=== PATIENT | male | born 1960 | race Caucasian/White ===

== ENCOUNTER 2021-09-23 06:10 | Day surgery (SDC) | payer OTHER ==
[~2021-09-23] VITALS: Ht 180.3 cm; Wt 99.0 kg
[~2021-09-23 06:10] MED LIST: B-100 COMPLEX1 EACH PO; EUTHYROX125 MCG PO; FOLI1 PO; Naltrexone HCl50 MG PO
[2021-09-23] MEDS ORDERED: CLOP75 PO (10:38)
--- NOTE | 2021-09-23 12:06 | NUR ---
PURSE STRING SUTURE REMOVED FROM L POP SITE. CLOTH DOT PLACED. PT UP AND WALKING AROUND. SITE BLEEDING SOME. DR IN TO TALK WITH PT, PRESSURE DRESSING PLACED OVER L POP. SALINE LOCK REMOVED WITH CATHETER INTACT. PT GETTING DRESSED AT THIS TIME.
--- NOTE | 2021-09-23 12:36 | NUR ---
PT VERBALIZED UNDERSTANDING OF WRITTEN AND VERBAL D/C INST. PT TAKEN OUT OF THE HRT CENTER VIA W/C.
[2021-11-09] MEDS ORDERED: CLOP75 PO (22:23)
[2021-11-11] MEDS ORDERED: XARELTO20 MG PO (07:21)
[2021-11-11] MEDS ORDERED: XARELTO15 MG PO (07:44)
[2021-11-11] MEDS ORDERED: ATOR40TA PO (10:15)
== END 2021-09-23 12:30 | disposition home or self-care (01) ==
LOC: MHTC 06:10
DX: I87.1 Compression of vein (principal); I87.2 Venous insufficiency (chronic) (peripheral); L97.822 Non-pressure chronic ulcer of other part of left lower leg with fat layer exposed; E03.9 Hypothyroidism, unspecified; G47.30 Sleep apnea, unspecified; F17.290 Nicotine dependence, other tobacco product, uncomplicated; Z88.8 Allergy status to other drugs, medicaments and biological substances
CPT/HCPCS: 37238; 37252; 75820; 75825; 76937; 99152; 99153; A9270; C1725; C1753; C1769; C1876; C1887; C1894; J1644; J2250; J3010; J7030; J7040; Q9967

== ENCOUNTER 2022-02-16 05:35 | Day surgery (SDC) | payer OTHER ==
[~2022-02-16] VITALS: Ht 180.3 cm; Wt 105.0 kg
[~2022-02-16 05:35] MED LIST changes: +ATOR40TA PO; +CLOP75 PO; +CYAN500 PO; +MULVITA PO; +Pentoxifylline400 MG PO; +THERA-D2000 UNIT PO; +XARELTO15 MG PO; +XARELTO20 MG PO
[2022-02-16 07:23] LABS: BASOPHILS ABSOLUTE AUTO 0.04 K/mm3 (0.00-0.23); BASOPHILS PERCENT AUTO 1 % (0-2); EOSINOPHILS ABSOLUTE AUTO 0.21 K/mm3 (0.00-0.68); EOSINOPHILS PERCENT AUTO 3 % (0-6); Hematocrit 41.3 % (37.0-53.0); Hemoglobin 13.8 g/dL (13.5-17.5); IMMATURE GRAN ABSOLUTE AUTO 0.03 K/mm3 (0.00-0.10); IMMATURE GRAN PERCENT AUTO 0 % (0-1); LYMPHOCYTES ABSOLUTE AUTO 0.74 K/mm3 (0.84-5.20); LYMPHOCYTES PERCENT AUTO 11 % (21-46); MONOCYTES ABSOLUTE AUTO 0.95 K/mm3 (0.16-1.47); MONOCYTES PERCENT AUTO 14 % (4-13); Mean Corpuscular HGB Conc 33.4 g/dL (31.5-36.5); Mean Corpuscular Volume 84 fL (80-100); Mean Platelet Volume 8.4 fL (9.1-12.4); NEUTROPHILS ABSOLUTE AUTO 5.05 K/mm3 (1.96-9.15); NEUTROPHILS PERCENT AUTO 72 % (41-73); Platelet Count 415 K/mm3 (150-400); RDW Coefficient Variation 14.3 % (11.7-14.2); RDW Standard Deviation 43.8 fL (35.1-46.3); Red Blood Cell Count 4.92 M/mm3 (4.30-5.90); White Blood Cell Count 7.02 K/mm3 (4.00-11.30)
[2022-02-16 07:32] LABS: International Normalized Ratio 1.01; Prothrombin Time Results 10.6 Sec (9.7-11.5)
[2022-02-16 07:34] LABS: Calcium, Blood 8.9 mg/dL (8.5-10.1); Creatinine, Blood 0.75 mg/dL (0.60-1.20); Potassium, Blood 3.6 mmol/L (3.5-5.5)
--- NOTE | 2022-02-16 09:09 | NUR ---
PT REPORT FROM MARCY RODRIGUEZ. PT ALERT AND ORIENTED. DRESSING INTACT AND NO BLEEDING NOTED.
--- NOTE | 2022-02-16 09:39 | NUR ---
PT GIVEN BREAKFAST TRAY
--- NOTE | 2022-02-16 11:33 | NUR ---
PT GIVEN DC INSTRUCTIONS AND VERBALIZED UNDERSTANDING. IV OUT. PT CHANGED INTO CLOTHES. DRESSING IN PLACE W/O ANY EVIDENCE OF BLEEDING. PT TAKEN TO LBY VIA WC. PT CALLED FOR [facility] RIDE HOME.
== END 2022-02-16 11:30 | disposition home or self-care (01) ==
LOC: MHTC 05:35
PROVIDERS: Radiology Diagnostic Radiology
DX: I82.220 Acute embolism and thrombosis of inferior vena cava (principal); I87.312 Chronic venous hypertension (idiopathic) with ulcer of left lower extremity; L97.929 Non-pressure chronic ulcer of unspecified part of left lower leg with unspecified severity; I87.2 Venous insufficiency (chronic) (peripheral); Z95.828 Presence of other vascular implants and grafts; E78.5 Hyperlipidemia, unspecified; E03.9 Hypothyroidism, unspecified; F41.9 Anxiety disorder, unspecified
CPT/HCPCS: 37193; 76937; 77001; 80048; 85025; 85610; 99152; 99153; C1769; C1773; C1887; C1894; J1644; J2250; J2704; J3010; J7030; Q9967

== ENCOUNTER 2022-03-16 06:27 | Day surgery (SDC) | payer OTHER ==
[~2022-03-16] VITALS: Ht 180.3 cm; Wt 102.0 kg
[~2022-03-16 06:27] MED LIST changes: +B COMPLEX FORM0.4 MG PO
[2022-03-16 07:10] LABS: Hematocrit 39.6 % (37.0-53.0); Mean Corpuscular HGB Conc 32.8 g/dL (31.5-36.5); Mean Corpuscular Volume 82 fL (80-100); Mean Platelet Volume 7.9 fL (9.1-12.4); Platelet Count 370 K/mm3 (150-400); RDW Coefficient Variation 14.1 % (11.7-14.2); RDW Standard Deviation 41.5 fL (35.1-46.3); Red Blood Cell Count 4.81 M/mm3 (4.30-5.90); White Blood Cell Count 6.87 K/mm3 (4.00-11.30)
[2022-03-16 07:24] LABS: International Normalized Ratio 1.22; Prothrombin Time Results 12.6 Sec (9.7-11.5)
[2022-03-16 07:26] LABS: Bun/Creatinine Ratio 13.4 (12.0-20.0); Calcium, Blood 9.2 mg/dL (8.5-10.1); Creatinine, Blood 0.97 mg/dL (0.60-1.20); Potassium, Blood 3.8 mmol/L (3.5-5.5)
[2022-03-16 09:07] LABS: BAND PERCENT MAN 1 % (0-8); BASOPHILS ABSOLUTE MAN 0.06 K/mm3 (0.00-0.23); BASOPHILS PERCENT MAN 1 % (0-2); EOSINOPHILS PERCENT MAN 3 % (0-6); LYMPHOCYTES ABSOLUTE MAN 0.54 K/mm3 (0.84-5.20); LYMPHOCYTES PERCENT MAN 8 % (21-46); MONOCYTES ABSOLUTE MAN 0.68 K/mm3 (0.16-1.47); MONOCYTES PERCENT MAN 10 % (4-13); NEUTROPHILS ABSOLUTE MAN 5.35 K/mm3 (1.96-9.15); SEG NEUTROPHILS PERCENT MAN 77 % (41-73); TOTAL CELLS COUNTED 100
--- NOTE | 2022-03-16 14:08 | NUR ---
PT FLOWSTASIS REMOVED BILATERALLY FROM BEHIND POPILITEAL. CLOTH DOT BANDAGES APPLIED. PT TOLERATES WELL. NO BLEEDING NOTED. VSS. NADN. PT DRESSES SELF WITHOUT DIFF. PT IV DC'D. CATH INTACT. PRESSURE DSG APPLIED. PT AMBULATES TO RESTROOM AND BACK WITHOUT DIFF. PT WILL DC TO HOME VIA WC BY [facility] CAB.
== END 2022-03-16 14:30 | disposition home or self-care (01) ==
LOC: MHTC 06:27
PROVIDERS: Radiology Diagnostic Radiology
DX: I87.2 Venous insufficiency (chronic) (peripheral) (principal); L97.929 Non-pressure chronic ulcer of unspecified part of left lower leg with unspecified severity; Z88.8 Allergy status to other drugs, medicaments and biological substances
CPT/HCPCS: 37248; 37249; 75822; 75825; 76937; 80048; 85025; 85610; C1725; C1769; C1773; C1887; C1894; J1100; J1644; J2370; J2405; J2704; J3010; J7030; J7050; J7120; Q9967

== ENCOUNTER 2022-06-16 12:00 | Day surgery (SDC) | payer OTHER ==
[~2022-06-16] VITALS: Ht 180.3 cm; Wt 104.8 kg
[~2022-06-16 12:00] MED LIST changes: +ALPR1 PO
--- NOTE | 2022-06-16 15:45 | NUR ---
PATIENT ARRIVED TO RECOVERY ROOM DROWSY BUT AROUSABLE. R JUGULAR SITE C/D/I, SOFT/NOTENDER WITH FLOSTASIS DEVICE IN PLACE. VSS ON ROOM AIR.
--- NOTE | 2022-06-16 17:16 | NUR ---
PATIENT FULLY, AWAKE AND ORIENTED. PATIENT SITTING UPRIGHT IN BED AND TOLERATING PO INTAKE. R JUGULAR ACCESS, C/D/I SOFT/NONTENDER WITH FLOSTASIS DEVICE IN PLACE. VSS ON ROOM AIR.
--- NOTE | 2022-06-16 17:26 | NUR ---
[facility] AREA C/D/I, SOFT/NONTENDER. ANNA DRESSING APPLIED WITH TEGADERM. NO EVIDENCE OF BLEEDING. PATIENT SITTING UPRIGHT IN BED. TOLERATING PO INTAKE WELL. VSS ON ROOM AIR.
--- NOTE | 2022-06-16 17:50 | NUR ---
PT DRESSED SELF WITHOUT ISSUE, SITE STABLE; IV REMOVED-CANNULA INTACT.
--- NOTE | 2022-06-16 18:05 | NUR ---
REVIEWED DISCHARGE INSTRUCTIONS, MED LIST AND AFTER CARE INSTRUCTIONS; VERBALIZED GOOD UNDERSTANDING. PT TRANSPORTED DOWN TO PATIENT ENTRANCE TO MEET [facility] FOR RIDE HOME.
--- NOTE | 2022-06-16 19:50 | NUR ---
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 PT ELECTED TO AMB HOME, ENCOURAGED TO WAIT FOR RIDE; BUT PT LEFT FACILITY VIA AMB, GAIT STEADY.
== END 2022-06-16 19:45 | disposition home or self-care (01) ==
LOC: ORSCSDS 12:00 → MHTC 12:00 → ORSCSDS 12:30 → MHTC 19:45
DX: T82.856A Stenosis of peripheral vascular stent, initial encounter (principal); Y71.8 Miscellaneous cardiovascular devices associated with adverse incidents, not elsewhere classified; I87.1 Compression of vein; E03.9 Hypothyroidism, unspecified; G47.30 Sleep apnea, unspecified; F17.210 Nicotine dependence, cigarettes, uncomplicated; F17.290 Nicotine dependence, other tobacco product, uncomplicated; Z88.8 Allergy status to other drugs, medicaments and biological substances; Z79.899 Other long term (current) drug therapy; Z79.01 Long term (current) use of anticoagulants
CPT/HCPCS: 76937; C1725; C1757; C1769; C1887; C1894; J2704; Q9967

== ENCOUNTER 2023-01-04 14:20 | Day surgery (SDC) | payer OTHER ==
[~2023-01-04] VITALS: Ht 180.3 cm; Wt 104.7 kg
[~2023-01-04 14:20] MED LIST changes: +Apple Cider Vi300 MG PO; +CEPH500 PO
--- NOTE | 2023-01-04 15:27 | NUR ---
01/04/23 [address] ON LEFT EYE AT 1503. PLEDGET PLACED IN LEFT EYE AT 1506. PATIENT TOLERATED WELL.
[2023-01-04 16:18] VITALS: BP 134/81
--- NOTE | 2023-01-04 16:28 | NUR ---
01/04/23 1628 Juana Kaplan IV, DC'D WNL, PT TOLERATED WELL. CATH INTACT.
== END 2023-01-04 16:33 | disposition home or self-care (01) ==
LOC: ORSCSDS 14:20
PROVIDERS: Ophthalmology
PROC: 08RK3JZ Replacement of Left Lens with Synthetic Substitute, Percutaneous Approach (ICD-10-PCS; principal; 2023-01-04 15:30)
DX: H25.12 Age-related nuclear cataract, left eye (principal); H21.81 Floppy iris syndrome; I10 Essential (primary) hypertension; E78.5 Hyperlipidemia, unspecified; E03.9 Hypothyroidism, unspecified; G47.33 Obstructive sleep apnea (adult) (pediatric); Z79.02 Long term (current) use of antithrombotics/antiplatelets; Z79.01 Long term (current) use of anticoagulants; Z79.899 Other long term (current) drug therapy
CPT/HCPCS: J2250; J3010; J3301; J7040; V2632